=== PATIENT | male | born 1960 | race Caucasian/White ===

== ENCOUNTER → 2020-10-01 | Outpatient (CLI) | payer BC ==
[~2020-10-01] MED LIST: CIPRO500 MG PO; CRESTOR20 MG PO; HYDROCHLOROTH12.5 M1 PO; LISINOPRIL20 MG PO; METFORMIN HCL500 M2 PO; VITAMIN B-121000 MC1 PO; VITAMIN D350000 UNIT PO
== END ==
LOC: SLEEP 08:34
DX: R29.818 Other symptoms and signs involving the nervous system (principal)
CPT/HCPCS: 95810

== ENCOUNTER → 2021-08-15 | Outpatient (CLI) | payer BC | LOC: KOH-I 08:00 | DX: Z87.891 Personal history of nicotine dependence (principal); R91.8 Other nonspecific abnormal finding of lung field; I25.10 Atherosclerotic heart disease of native coronary artery without angina pectoris | CPT/HCPCS: 71271 ==